=== PATIENT | male | born 1965 | race Caucasian/White ===

== ENCOUNTER 2022-03-22 20:04 | Emergency (ER) | payer BC | END 2022-03-22 21:22 | disposition home or self-care (01) | LOC: JP.ED 20:04 | DX: U07.1 COVID-19 (principal); J32.9 Chronic sinusitis, unspecified; I10 Essential (primary) hypertension; M19.90 Unspecified osteoarthritis, unspecified site; Z79.899 Other long term (current) drug therapy | CPT/HCPCS: 71046; 71046-26; 99283 ==